=== PATIENT | female | born 1985 | race Caucasian/White ===

== ENCOUNTER 2020-04-21 07:01 | Outpatient (CLI) | payer OTHER | END 2020-04-21 23:59 | disposition home or self-care (01) | LOC: LAB 07:01 | PROVIDERS: ATTEND Orthopaedic Surgery | DX: Z01.812 Encounter for preprocedural laboratory examination (principal); Z20.828 Contact with and (suspected) exposure to other viral communicable diseases ==

== ENCOUNTER 2020-04-23 10:00 | Outpatient (CLI) | payer OTHER ==
[2020-04-23 10:53] LABS: BASOPHILS % (AUTO) 0.9 % (0.0-2.0); EOSINOPHILS % (AUTO) 0.2 % (0.0-7.0); HEMOGLOBIN 14.1 g/dL (10.9-14.3); LYMPHOCYTES # (AUTO) 1.7 K/uL (20.0-40.0); LYMPHOCYTES % (AUTO) 42.2 % (20.5-51.5); MEAN CORPUSCULAR HGB CONC 34 g/dL (32.3-35.6); MEAN CORPUSCULAR VOLUME 89.4 fL (75.5-95.3); MONOCYTES # (AUTO) 0.2 K/uL (2.0-10.0); MONOCYTES % (AUTO) 6.2 % (0.0-11.0); NEUTROPHILS % (AUTO) 50.5 % (38.5-71.5); PLATELET COUNT (AUTO) 203 K/uL (179-408)
[2020-04-23 10:54] LABS: *BILIRUBIN,URIN NEGATIVE (NEGATIVE); *BLOOD, URINE NEGATIVE (NEGATIVE); *CLARITY,URINE CLEAR (CLEAR); *COLOR,URINE YELLOW (YELLOW); *KETONES,URINE NEGATIVE (NEGATIVE); *UROBILINOGEN,URINE 0.2 E.U./dl (NORMAL); LEUKOCYTE ESTERASE ,URINE NEGATIVE (NEGATIVE); NITRITE, URINE NEGATIVE (NEGATIVE); PH,URINE 6.5 (5.0-8.0); POTASSIUM 4.1 mmol/L (3.5-5.1); UGLUCOSE NEGATIVE (NEGATIVE)
[2020-04-23 13:51] LABS: BACTERIA,URINE R /HPF (NONE SEEN); RBC,URINE NONE SEEN /HPF (0-3); SQUAMOUS EPITHELIAL CELL,UR FEW /HPF (NONE SEEN); WBC,URINE 0-3 /HPF (0-3)
[2020-04-24] MEDS ORDERED: MIDAZOLAM HCL 2 MG/2 ML VIAL ONE (08:16)
[2020-04-24] MEDS ORDERED: BUPIVACAINE PF 0.5% 30 ML VIAL ONE (08:28)
== END 2020-04-23 23:59 | disposition home or self-care (01) ==
LOC: LAB 10:00
PROVIDERS: ATTEND Internal Medicine
DX: Z01.812 Encounter for preprocedural laboratory examination (principal); G56.01 Carpal tunnel syndrome, right upper limb
CPT/HCPCS: 36415; 85025; 85730; A4663; J2250; J3490; J7120

== ENCOUNTER 2020-04-24 06:54 | Day surgery (SDC) | payer OTHER ==
[2020-04-24] MEDS ORDERED: SEVOFLURANE 250 ML BOTTLE IH ONE (06:55)
[2020-04-24] MEDS ORDERED: PROPOFOL 200 MG/20 ML BOTTLE IV ONE (06:55)
[2020-04-24] MEDS ORDERED: DEXAMETHASONE SOD PHOSPHATE 4 MG INJ IV ONE (06:55)
[2020-04-24] MEDS ORDERED: ONDANSETRON 4 MG/2 ML VIAL IV ONE (06:55)
[2020-04-24] MEDS ORDERED: CEFAZOLIN 1 G VIAL MC ONE (06:55)
[2020-04-24] MEDS ORDERED: LIDOCAINE-MPF 2% 5 ML VIAL MC ONE (06:55)
[2020-04-24 07:22] LABS: *URINE HCG, QUAL NEG (NEGATIVE)
[2020-04-24] MEDS ORDERED: POLYMYXIN B SULFATE 500,000 UNITS, BACITRACIN 50,000 UNITS, NORMAL SALINE 20 ML MC ONE ×3 (08:30)
[2020-04-24] MEDS ORDERED: KETOROLAC TROMETHAMINE 30 MG INJ ONE (09:25)
[2020-04-24] MEDS ORDERED: FENTANYL CITRATE 100 MCG/2 ML AMPUL ONE (09:26)
[2020-04-24] MEDS ORDERED: TRAMADOL HCL 50 MG TABLET ONE (11:09)
== END 2020-04-24 11:35 | disposition home or self-care (01) ==
LOC: DS 06:54
PROVIDERS: ATTEND Orthopaedic Surgery
DX: G56.01 Carpal tunnel syndrome, right upper limb (principal); Z79.899 Other long term (current) drug therapy; Z98.890 Other specified postprocedural states
CPT/HCPCS: 84703; A4649; J0690; J1100; J1885; J2250; J2405; J3010; J3490

== ENCOUNTER 2020-12-23 07:24 | Outpatient (CLI) | payer OTHER | END 2020-12-23 23:59 | disposition home or self-care (01) | LOC: LAB 07:24 | PROVIDERS: ATTEND Internal Medicine | DX: Z01.812 Encounter for preprocedural laboratory examination (principal); Z20.822 Contact with and (suspected) exposure to COVID-19; G56.02 Carpal tunnel syndrome, left upper limb ==

== ENCOUNTER 2020-12-24 09:44 | Outpatient (CLI) | payer OTHER ==
[2020-12-24 10:47] LABS: BASOPHILS % (AUTO) 0.9 % (0.0-2.0); EOSINOPHILS % (AUTO) 0.4 % (0.0-7.0); HEMOGLOBIN 13.3 g/dL (10.9-14.3); LYMPHOCYTES # (AUTO) 1.4 K/uL (20.0-40.0); LYMPHOCYTES % (AUTO) 33.2 % (20.5-51.5); MEAN CORPUSCULAR HEMOGLOBIN 30.3 uug (24.7-32.8); MEAN CORPUSCULAR HGB CONC 33 g/dL (32.3-35.6); MEAN CORPUSCULAR VOLUME 91.2 fL (75.5-95.3); MONOCYTES # (AUTO) 0.3 K/uL (2.0-10.0); NEUTROPHILS # (AUTO) 2.6 K/uL (1.8-8.9); NEUTROPHILS % (AUTO) 58.5 % (38.5-71.5); PLATELET COUNT (AUTO) 191 K/uL (179-408); RED BLOOD CELL COUNT(AUTO) 4.38 MIL/uL (3.63-4.92); WHITE BLOOD COUNT (AUTO) 4.4 K/uL (3.8-11.8)
[2020-12-24 10:57] LABS: BILIRUBIN,TOTAL 0.8 mg/dL (0.2-1.0); CREATININE 0.9 mg/dL (0.6-1.3); POTASSIUM 5.1 mmol/L (3.5-5.1); TOTAL PROTEIN, SERUM 7.1 g/dL (6.4-8.2)
[2020-12-24 10:58] LABS: *BILIRUBIN,URIN NEGATIVE (NEGATIVE); *BLOOD, URINE NEGATIVE (NEGATIVE); *CLARITY,URINE CLEAR (CLEAR); *COLOR,URINE YELLOW (YELLOW); *KETONES,URINE NEGATIVE (NEGATIVE); *UROBILINOGEN,URINE 0.2 E.U./dl (NORMAL); LEUKOCYTE ESTERASE ,URINE NEGATIVE (NEGATIVE); NITRITE, URINE NEGATIVE (NEGATIVE); PH,URINE 6.5 (5.0-8.0); UGLUCOSE NEGATIVE (NEGATIVE)
== END 2020-12-24 23:59 | disposition home or self-care (01) ==
LOC: LAB 09:44
PROVIDERS: ATTEND Internal Medicine
DX: Z01.818 Encounter for other preprocedural examination (principal); G56.02 Carpal tunnel syndrome, left upper limb
CPT/HCPCS: 36415; 85025; 85730

== ENCOUNTER 2020-12-26 08:33 | Day surgery (SDC) | payer OTHER ==
[~2020-12-26 08:33] MED LIST: POLYMYXIN B SULFATE 500,000 UNITS, BACITRACIN 50,000 UNITS, NORMAL SALINE 20 ML MC ONE
[2020-12-26] MEDS ORDERED: DEXAMETHASONE SOD PHOSPHATE 4 MG INJ IV ONE (08:34)
[2020-12-26] MEDS ORDERED: LIDOCAINE-MPF 2% 5 ML VIAL MC ONE (08:34)
[2020-12-26] MEDS ORDERED: CEFAZOLIN 1 G VIAL MC ONE (08:34)
[2020-12-26] MEDS ORDERED: KETOROLAC TROMETHAMINE 30 MG INJ IM ONE (08:34)
[2020-12-26] MEDS ORDERED: PROPOFOL 200 MG/20 ML BOTTLE IV ONE (08:34)
[2020-12-26] MEDS ORDERED: ONDANSETRON 4 MG/2 ML VIAL IV ONE (08:34)
[2020-12-26 09:01] LABS: *URINE HCG, QUAL NEG (NEGATIVE)
[2020-12-26] MEDS ORDERED: MIDAZOLAM HCL 2 MG/2 ML VIAL ONE (10:23)
[2020-12-26] MEDS ORDERED: SEVOFLURANE 250 ML BOTTLE ONE (10:48)
[2020-12-26] MEDS ORDERED: BUPIVACAINE PF 0.5% 30 ML VIAL ONE (10:49)
[2020-12-26] MEDS ORDERED: TRAMADOL HCL 50 MG TABLET ONE (13:51)
== END 2020-12-26 13:55 | disposition home or self-care (01) ==
LOC: DS 08:33
PROVIDERS: ATTEND Orthopaedic Surgery
DX: G56.02 Carpal tunnel syndrome, left upper limb (principal); Z79.899 Other long term (current) drug therapy; Z98.890 Other specified postprocedural states; Z88.6 Allergy status to analgesic agent; Z88.8 Allergy status to other drugs, medicaments and biological substances
CPT/HCPCS: 64721; 84703; J0690; J1100; J1885; J2250; J2405; J3490 ×4; A4649; A4663; J7030